=== PATIENT | female | born 1950 | race Caucasian/White ===

== ENCOUNTER → 2020-08-21 | Outpatient (CLI) | payer OTHER ==
[~2020-08-21] MED LIST: ASA81BEC PO; IBUPROFEN200 M1 PO; LIPITOR 40 MG T40 M1 PO; OMEPRAZOLE40 MG PO; SLOW FE142 MG PO; VITAMIN C500 M1 PO; VITAMIN D31250 MC1 PO
[2020-08-21 09:24] LABS: HEMATOCRIT 38.3 % (37.0-47.0); HEMOGLOBIN 12.2 gm/dL (12.0-15.0); MCH 28.2 pg (26.0-34.0); MCHC 31.7 g/dL (28.0-37.0); MCV 88.8 fL (80.0-100.0); RBC 4.32 mil/uL (4.20-5.00); RDW 14.8 % (10.5-14.5)
[2020-08-21 09:26] LABS: URINE BILIRUBIN NEGATIVE (Negative); URINE BLOOD NEGATIVE (Negative); URINE CLARITY CLEAR; URINE COLOR YELLOW; URINE GLUCOSE-RANDOM* NEGATIVE (Negative); URINE KETONES NEGATIVE (Negative); URINE NITRITE-REFLEX NEGATIVE (Negative); URINE PROTEIN (DIPSTICK) NEGATIVE (Negative); URINE UROBILINOGEN 0.2 E.U./dl (0.2-1.0)
[2020-08-21 09:32] LABS: URINE LEUKOCYTES-REFLEX 3+ (Negative)
[2020-08-21 09:33] LABS: PROTIME 10.3 Seconds (9.3-11.4)
[2020-08-21 09:51] LABS: SQUAMOUS 0-3 Few /LPF (0-3)
[2020-08-21 09:52] LABS: BACTERIA-REFLEX None Seen /HPF (None Seen); CASTS None Seen /LPF (None Seen); CRYSTALS None Seen /LPF (None Seen); URINE RBC 0-2 Rare /HPF (0-2); URINE WBC-REFLEX None Seen /HPF (0-5)
[2020-08-21 09:54] LABS: ALBUMIN 3.9 g/dL (3.4-5.0); CREATININE 0.9 mg/dL (0.6-1.0); POTASSIUM 4.3 mmol/L (3.5-5.1)
== END ==
LOC: LAB 09:00
PROVIDERS: ATTEND Orthopaedic Surgery Sports Medicine
DX: Z01.812 Encounter for preprocedural laboratory examination (principal); Z01.810 Encounter for preprocedural cardiovascular examination; M17.12 Unilateral primary osteoarthritis, left knee

== ENCOUNTER → 2020-08-29 | Outpatient (CLI) | payer OTHER | LOC: LAB 10:32 | PROVIDERS: ATTEND Orthopaedic Surgery Sports Medicine | DX: Z01.812 Encounter for preprocedural laboratory examination (principal); Z20.822 Contact with and (suspected) exposure to COVID-19 ==

== ENCOUNTER 2020-09-04 06:04 | Observation (INO) | payer OTHER ==
[2020-08-21 09:24] LABS: HEMATOCRIT 38.3 % (37.0-47.0); HEMOGLOBIN 12.2 gm/dL (12.0-15.0); MCH 28.2 pg (26.0-34.0); MCHC 31.7 g/dL (28.0-37.0); MCV 88.8 fL (80.0-100.0); RBC 4.32 mil/uL (4.20-5.00); RDW 14.8 % (10.5-14.5)
[2020-08-21 09:26] LABS: URINE BILIRUBIN NEGATIVE (Negative); URINE BLOOD NEGATIVE (Negative); URINE CLARITY CLEAR; URINE COLOR YELLOW; URINE GLUCOSE-RANDOM* NEGATIVE (Negative); URINE KETONES NEGATIVE (Negative); URINE NITRITE-REFLEX NEGATIVE (Negative); URINE PROTEIN (DIPSTICK) NEGATIVE (Negative); URINE UROBILINOGEN 0.2 E.U./dl (0.2-1.0)
[2020-08-21 09:32] LABS: URINE LEUKOCYTES-REFLEX 3+ (Negative)
[2020-08-21 09:33] LABS: PROTIME 10.3 Seconds (9.3-11.4)
[2020-08-21 09:51] LABS: SQUAMOUS 0-3 Few /LPF (0-3)
[2020-08-21 09:52] LABS: BACTERIA-REFLEX None Seen /HPF (None Seen); CASTS None Seen /LPF (None Seen); CRYSTALS None Seen /LPF (None Seen); URINE RBC 0-2 Rare /HPF (0-2); URINE WBC-REFLEX None Seen /HPF (0-5)
[2020-08-21 09:54] LABS: ALBUMIN 3.9 g/dL (3.4-5.0); CREATININE 0.9 mg/dL (0.6-1.0); POTASSIUM 4.3 mmol/L (3.5-5.1)
--- NOTE | 2020-08-21 12:41 | EKG ---
[address] [address] ELECTROCARDIOGRAM REPORT Name: AMOS DODSON Room #: PRE [facility].#: [id number] Admission: Attend Phys: Johnny Batista MD Discharge: Date of : 48 Report #: [id number] 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
[~2020-09-04] VITALS: Ht 160 cm; Wt 67.6 kg
--- NOTE | ~2020-09-04 | O ---
[facility] [place] [address] OPERATIVE REPORT Name: AMOS DODSON Room #: 443-P [facility]..#: [id number] Admission: 09/04/20 Attend Phys: Johnny Batista MD Discharge: Date of : 48 Report #: [id number] THIS REPORT FOR: cc: Silvia Romeo MD, Melanie MD McCabe,Johnny Key MD ~ DATE OF SERVICE: 09/04/2020 SERVICE: Orthopedics. FACILITY: [facility]. SURGEON: Johnny Batista MD CLINICAL TRIALS MANAGER: Liliam Uribe NP INDICATION FOR CLINICAL TRIALS MANAGER: Extremity positioning, retraction, exposure and closure. PREOPERATIVE DIAGNOSIS: Varus type osteoarthritis, left knee. POSTOPERATIVE DIAGNOSIS: Varus type osteoarthritis, left knee. PROCEDURES: Robotic-assisted left total knee arthroplasty. COMPLICATIONS: None. DRAINS: None. SPECIMENS: None. ANESTHESIA: General with regional. ESTIMATED BLOOD LOSS: 50 mL. FINDINGS: [employer] cobalt chrome size 4 Journey II femoral component with size 3 tibial component and 10 mm constrained poly insert with a 29 mm patellar button. HISTORY: The patient is a 70-year-old female with history of persistent progressive left knee pain. Her pain was majority anteromedial in location. We had a workup and assessed to be a potential candidate for unicompartmental knee arthroplasty. Based on her imaging, x-ray showed lyhu-ot-eflu osteoarthritis with sclerosis and osteophytes in the medial compartment. We had an MRI, which showed some degenerative change of the patellofemoral joint and after failing [facility] [address] [place] [address] OPERATIVE REPORT Name: AMOS DODSON Room #: 443-P [facility]..#: [id number] Admission: 09/04/20 Attend Phys: Johnny Batista MD Discharge: Date of : 48 Report #: [id number] conservative measures including rest, activity modifications, physical therapy, oral medicines, injections, and modalities, she wished to move forward with definitive surgical treatment. We discussed a surgical approach for uni versus total knee arthroplasty and she was in agreement with this plan. Risks, benefits, alternatives, and indication of surgery discussed with her in detail. Risks include but not limited to pain, bleeding, infection, injury nerves or blood vessels, persistent pain, need for further surgery including revision, stiffness as well as complications related to anesthesia. Despite the risks, she wished to proceed. PROCEDURE IN DETAIL: After the left lower extremity was correctly identified in the preoperative holding area as the operative extremity, the patient underwent regional nerve block. She was then taken to the operating room where general anesthesia was induced without complication. She was padded appropriately. Prophylactic antibiotics were administered at appropriate time. Tourniquet was applied to the left leg. Left lower extremity was then prepped and draped in standard sterile fashion. Timeout procedure performed. Esmarch was used to exsanguinate the extremity. Tourniquet was inflated to 250 mmHg. Standard anterior approach was made to the knee and then a medial parapatellar arthrotomy was performed. There was significant amount of synovial fluid present and there were osteophytes on both the medial and lateral aspects of the femur and circumferentially around the patella. There were severe arthritis was in the medial compartment. We carefully evaluated the patellofemoral compartment, lateral compartment and ultimately decided to proceed with a total knee arthroplasty. She had full thickness chondral injury in multiple locations of the lateral femoral condyle and she had hypertrophic areas on the articular surface of the lateral femoral condyle as well. 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 Therefore, we made plan to convert to total knee arthroplasty. The checkpoints and half pins were placed in the standard fashion after exposure had been completed by excising the anterior horns of the medial and lateral menisci and the cruciate ligaments. We then used the [employer] robotic system to assess the anatomy and balancing, her preoperative alignment was in varus and she was actually ____ and is ultimately why we selected the constrained liner and this provided better lateral stability and the cutting block stability. The [employer] robotic system was used to map out the anatomy and then the distal femoral cut was made with the bur and then the 5-in-1 cutting block was used to prep the femur, then proceeded with tibial preparation in standard fashion. I used the sizing block to assess the flexion and extension gaps and she was tight medially, so we used an 11 blade to perform a limited medial release of the lamina robotic technician. The posterior capsule was injected with the periarticular injection cocktail. The trials were placed. The tibia and femur were prepared and then a 10 mm poly was then inserted. The knee was taken through range of motion and found to be stable. We then prepped the patella to a 29 mm patella. [address] [address] OPERATIVE REPORT Name: AMOS DODSON Room #: 443-P [facility] Sandra M.R.#: [id number] Admission: 09/04/20 Attend Phys: Johnny Batista MD Discharge: Date of : 48 Report #: [id number] We used the [employer] robotic system to again assess the alignment and balancing and range of motion and I was happy with this appearance other than the residual lateral laxity, so we removed the trials, prepped the bone and then cemented the final implants into position and held the knee into extension while the cement cured. The remaining volume of periarticular injection was then injected into the soft tissues and periosteum. Tourniquet was let down. Hemostasis was achieved and then we trialed once more with a standard 10 and a constrained 10 poly liner, the constraints 10 provided slightly better coronal plane stability ____ final implant and placed it into position. After thoroughly irrigating the knee once more, the arthrotomy was closed with 0 Vicryl suture in liftug-eb-jpsfi fashion over a gram of vancomycin powder and the skin was closed with 2-0 Vicryl followed by running subcuticular 3-0 Monocryl and Dermabond. Sterile dressing was applied followed by compression stocking and PolarCare. The patient was awakened from anesthesia and taken to recovery room in stable condition. There were no complications. All counts were correct. By: [id number] Johnny Batista MD /nt
[2020-09-04 07:09] VITALS: BP 123/68
[2020-09-04 12:05] VITALS: BP 143/72
--- NOTE | 2020-09-04 13:29 | NUR ---
Pt came to unit from recovery room approx 1200. Pain undercontrol at the moment. Dressing c/d/i. IVF infuing. Admission completed. RADHA dolan and SCDs in place. Polar care in place. Family at bedside. Physical therapy will see pt this afternoon. Fall precautions in place. Will continue to monitor.
[2020-09-04 14:10] VITALS: BP 153/79
--- NOTE | 2020-09-04 15:31 | NUR ---
ASSESSMENT: CM REVIEWED CHART AND SPOKE WITH PATIENT. PT IS ALERT AND ORIENTED X4. PT IS S/P LEFT TKA. PT REPORTS LIVING IN A RANCH STYLE HOME WITH HER . PT REPORTS ONE STEP TO ENTER AND NO STEPS ONCE INSIDE. PT REPORTS SHE IS NORMALLY INDEPENDENT WITH ADLS AND AMBULATION. PHYSICAL THERAPY WORKED WITH PATIENT AND ARE RECOMMENDING A WALKER. PT REPORTS NO PREFERENCE OF [employer]. CM NOTIFIED [employer] TO PLEASE VERIFY INSURANCE AND IF ABLE TO DELIVER WALKER IN THE AM. PT REPORTS SHE IS WORKING ON SETTING UP OUTPT THERAPY. CM WILL CONTINUE TO FOLLOW TO ASSIST NEEDED.
[2020-09-04 18:54] VITALS: BP 118/60
--- NOTE | 2020-09-04 22:20 | NUR ---
ASSESSED AT START OF SHIFT, PT A&OX4. C/O PAIN MANAGED BY PO OXYCODONE. IV INTACT AND FLUIDS INFUSING. LEFT KNEE DRESSING INTACT. GREY DRESSING, POLAR PACK, TEDHOSE AND SCD'S IN PLACE. PT UP WITH SBA TO THE BATHROOM. FALL PREC IN PLACE AND CALL LIGHT AT REACH WILL CONT TO MONITOR.
[2020-09-05 03:52] VITALS: BP 111/62
[2020-09-05 05:26] LABS: ABSOLUTE NEUTROPHILS 8.8 thou/uL (1.4-8.2); EOSINOPHILS 0.1 % (0.0-3.0); HEMATOCRIT 29.4 % (37.0-47.0); HEMOGLOBIN 9.5 gm/dL (12.0-15.0); LYMPHOCYTES 9.5 % (24.0-44.0); MCH 28.6 pg (26.0-34.0); MCHC 32.4 g/dL (28.0-37.0); MCV 88.3 fL (80.0-100.0); MONOCYTES 6.3 % (1.0-8.0); PLATELET COUNT 196 thou/uL (150-400); POLYS 84.1 % (36.0-66.0); RBC 3.33 mil/uL (4.20-5.00); WBC 10.5 thou/uL (4.0-11.0)
[2020-09-05 05:46] LABS: CALCIUM 8.1 mg/dL (8.5-10.1); CREATININE 0.9 mg/dL (0.6-1.0); POTASSIUM 3.8 mmol/L (3.5-5.1)
[2020-09-05 08:02] VITALS: BP 116/67
[2020-09-05 08:05] VITALS: BP 116/67
[2020-09-05 10:21] VITALS: BP 116/67
[2020-09-05 10:54] VITALS: BP 116/67
--- NOTE | 2020-09-05 11:41 | NUR ---
PT CARE ASSUMED AT 0700. A&Ox4. PT UP WITH STANDBY AND A WALKER. IV PATENT WITH NO REDNESS OR EDEMA, SALINE LOCKED. IV REMOVED. WALKER DELIVERED. DISCAHRGE INSTRUCTIONS GIVEN TO PATIENT AND SPOUSE, ALL QUESTIONS ANSWERED. EDUCATED ON GREY DRESSING, POLAR PACK. RADHA HOSES IN PLACE. SCDS IN PLACE. PAIN CONTROLLED WELL WOTH PAIN MEDICATION ON BOARD. FALL PROTOCOL IN PLACE. CALL LIGHT IN REACH.
== END 2020-09-05 11:54 | disposition home or self-care (01) ==
LOC: OR 06:04 → TBA 06:05 → OR 08:34 → 4S 12:05 → OR 14:44 → 4S 09-05 11:54
PROVIDERS: Nurse Practitioner; ADMIT Orthopaedic Surgery Sports Medicine; ATTEND Orthopaedic Surgery Sports Medicine
DX: M17.12 Unilateral primary osteoarthritis, left knee (principal); K21.9 Gastro-esophageal reflux disease without esophagitis; E78.5 Hyperlipidemia, unspecified; D64.9 Anemia, unspecified; E55.9 Vitamin D deficiency, unspecified; Z79.899 Other long term (current) drug therapy
CPT/HCPCS: 50010; 50101; 50415; 50954; 51130; 51225; 51320; 53000; 53078; 54118; 56527; 56528; 57095; 57103; 57110; 57127; 57180; 58239; 62110; 62900; 64042; 70005